=== PATIENT | female | born 1945 | race Caucasian/White ===

== ENCOUNTER 2017-09-05 22:57 | Observation (INO) ==
[2017-09-06] MEDS ORDERED: Naloxone 0.4 MG/ML INJ IVP PRN (04:47)
[2017-09-06] MEDS ORDERED: rOPINIRole 1 MG TABLET PO SCH ×3 (05:00→21:00)
[2017-09-06 06:15] LABS: Hematocrit 38.1 % (35.3-44.9); Hemoglobin 13.1 g/dL (11.5-15.4); Mean Corpuscular HGB Conc 34.4 g/dL (31.6-35.5); Mean Corpuscular Hemoglobin 30.7 pg (28.0-33.3); Mean Corpuscular Volume 89.2 fL (83.0-100.0); Mean Platelet Volume 10.3 fL (9.4-12.4); Platelet Count 244 K/mcL (140-400); Red Blood Count 4.27 M/mcL (3.82-4.97); Red Cell Distribution Width 14.4 % (11.5-14.5)
[2017-09-06 06:37] LABS: BUN/Creatinine Ratio 27 (6-26); Blood Urea Nitrogen 20 mg/dL (8-23); Calcium 8.9 mg/dL (8.6-10.3); Carbon Dioxide 26 mEq/L (23-29); Chloride 108 mEq/L (98-107); Glucose 93 mg/dL (70-105); Osmolality,Calculated 298 (280-300); Potassium 3.8 mEq/L (3.5-5.1); Sodium 143 mEq/L (136-145); eGFR For African Americans > 60 (> 60); eGFR For Non-African Americans > 60 (> 60)
--- NOTE | 2017-09-06 08:33 | Internal Med History&Physical ---
Date of Encounter: 09/06/17 Time of Encounter: 04:00 Internal Medicine - H&P: HPI Chief complaint: Hypokalemia, Seizure like episode. Plans for Post Hospital Care: Home History of present illness: Ms. Garcia is a 72 year old female Transfer from [facility]. She was being worked up for colonoscopy and upper endoscopy. After blood work results showed a low potassium, patient was notified to come to the emergency room for potassium supplementation. She received 2 doses IV potassium upon completion she had a seizure-like episode. Patient's describes that she was unresponsive and was shaking all over. The episode lasted about 15 seconds, then resolved. She has no recollection of the event. ER repeated CT, EKG and other labs, which they reported were all within normal limits because they do not have neurology coverage there she was transferred here for further evaluation. Upon questioning patient noted that these events have happened before in the past but seizing has not been noted with her prior episodes. She usually just gets really tired and then seemingly passes out. Past Med Surg Social Fam HX - Past Medical History Medical history: GERD, hyperlipidemia, hypertension, RA, other Additional medical history: vertigo Psychiatric history: no psych history - Past Surgical History Surgical History: cholecystectomy, orthopedic, other Additional surgical history: Right knee - Social History Smoking Status: Former smoker Alcohol use: occasionally Drug use: none - Family History Mother Living Status: Cause of : Ca Hx Family Cancer: Yes (Lung with mets) Brother Living Status: Cause of : Brain Ca. Hx Family Cancer: Yes (Brain Ca.) Internal Medicine - H&P: Meds Folic Acid 2 mg PO DAILY 09/06/17 [History] Methotrexate [Otrexup] 17.5 mg PO QWEEK 09/06/17 [History] NIFEdipine [Nifedipine ER] 30 mg PO DAILY 09/06/17 [History] Omeprazole [PriLOSEC] 40 mg PO DAILY 09/06/17 [History] Rituxan 09/06/17 [History] Ropinirole HCl [Requip] 4 mg PO HS 09/06/17 [History] hydroCHLOROthiazide [Hydrochlorothiazide] 25 mg PO DAILY 09/06/17 [History] 3 Allergy/AdvReac Type Severity Reaction Status Date / Time acetaminophen [From Percocet] AdvReac Nausea Verified 09/06/17 01:52 codeine AdvReac Nausea Verified 09/06/17 01:52 hydrocodone [From Vicodin] AdvReac Nausea Verified 09/06/17 01:52 Oxycodone [From Percocet] AdvReac Nausea Verified 09/06/17 01:52 All Systems PM: A 10-system review of systems was performed and is negative for pertinent findings except as documented above in the HPI. - Constitutional Vitals: Temp Pulse Resp BP Pulse Ox 97.5 F L 65 14 149/63 99 09/06/17 07:23 09/06/17 07:23 09/06/17 07:23 09/06/17 07:23 09/06/17 07:23 General appearance: Present: A&O X 3, pleasant, no acute distress - Head Head exam: Present: atraumatic, normocephalic - Eye Eye exam: Present: EOMI, PERRL - Respiratory Respiratory exam: Present: CTAB. Absent: rales, rhonchi - Cardiovascular Cardiovascular exam: Present: RRR. Absent: diastolic murmur, systolic murmur - GI/Abdominal GI/Abdominal exam: Present: normal bowel sounds. Absent: firm, tenderness - Extremities Exam Extremities exam: Present: full ROM, warm, radial pulses palpable and symmetrical. Absent: tenderness - Neurological Exam Neurological exam: Present: altered, CN II-XII intact, oriented X3, no focal deficits. Absent: motor sensory deficit - Expanded Neurological Exam Speech: Absent: slurred Cranial Nerves: EOM's intact PM: Normal, nystagmus PM: Normal, tongue deviation PM: Normal Upper motor neuron: pronator drift: Normal - Skin Skin exam: Present: normal color. Absent: rash Internal Med - H&P Results - Labs CBC & Chem 7: 09/06/17 05:39 09/06/17 05:39 Labs: Short CBC 09/06/17 Range/Units 05:39 WBC 6.0 (4.3-11.1) K/mcL Hgb 13.1 (11.5-15.4) g/dL Hct 38.1 (35.3-44.9) % Plt Count 244 (140-400) K/mcL BMP 09/06/17 05:39 Sodium 143 Potassium 3.8 Chloride 108 H Carbon Dioxide 26 BUN 20 Creatinine 0.75 Glucose 93 Calcium 8.9 - Assessment and plan (1) Observed seizure-like activity Current Visit: Yes Status: Acute Assessment and plan: Observed after receiving potassium in the ER. No known history of this in the past, but has had fatigue episodes. Patient was transferred here due to lack of neurology coverage at [facility]. Consult neurology, follow up recommendations. Continue to monitor on fall precautions. (2) Hypokalemia Current Visit: Yes Status: Acute Assessment and plan: Patient had a low potassium on blood testing. She received 2 doses of IV potassium. Potassium has corrected to 3.8 Continue to monitor with routine labs. (3) Restless leg syndrome Current Visit: Yes Status: Acute Assessment and plan: Chronic patient takes ropinirole for this. Continue home medication, but clarify dose. (4) Rheumatoid arthritis Current Visit: Yes Status: Acute Assessment and plan: Patient sees specialists at [facility] and gets heavy transfusions of Rituxan. She also takes methotrexate. No change in management. Qualifiers: Rheumatoid factor presence: unspecified presence Qualified Code(s): M06.9 - Rheumatoid arthritis, unspecified (5) GERD (gastroesophageal reflux disease) Current Visit: Yes Status: Acute Assessment and plan: Patient has history of GERD and takes omeprazole at home. She is going to be scheduled outpatient for upper and lower endoscopy. Continue Prilosec. Qualifiers: Qualified Code(s): K21.9 - Gastro-esophageal reflux disease without esophagitis - Time Spent With Patient Total time spent is greater than 50% in coordination of care (as documented) at patient's floor/unit and/or counseling patient: Greater than 35 minutes
[2017-09-06] MEDS ORDERED: Gadolinium Contrast Agent (WT Based) IV PRN (08:57)
[2017-09-06] MEDS ORDERED: Folic Acid 1 MG TABLET PO SCH (09:00)
--- NOTE | 2017-09-06 09:09 | Neurology - Consult Note ---
<Alberto Alvares - Last Filed: 09/06/17 13:57> Date of Encounter: 09/06/17 Time of Encounter: 10:45 Assessment and Plan (1) Observed seizure-like activity Current Visit: Yes Status: Acute Patient had episode of staring with unresponsiveness and shaking of her torso after K infusion. No seizure history. Has had history of "fainting spells" that sound consistent with vasogal syncope. Recommendations: EEG MRI no need to start AED at this time. Will evaluate further after EEG and MRI read. History of Present Illness HPI: Ms. Garcia is a 72 year old female Past Med Surg Social Fam HX - Past Medical History Medical history: GERD, hyperlipidemia, hypertension, RA, other Additional medical history: vertigo Psychiatric history: no psych history - Past Surgical History Surgical History: cholecystectomy, orthopedic, other Additional surgical history: Right knee - Social History Smoking Status: Former smoker Alcohol use: occasionally Drug use: none - Family History Mother Living Status: Cause of : Ca Hx Family Cancer: Yes (Lung with mets) Brother Living Status: Cause of : Brain Ca. Hx Family Cancer: Yes (Brain Ca.) Medications and Allergies Doxepin [Sinequan] 25 mg PO HS 09/06/17 [History] Duloxetine HCl [Cymbalta] 60 mg PO DAILY 09/06/17 [History] Folic Acid 2 mg PO DAILY 09/06/17 [History] Methotrexate [Otrexup] 17.5 mg PO QWEEK 09/06/17 [History] NIFEdipine [Nifedipine ER] 30 mg PO DAILY 09/06/17 [History] Omeprazole [PriLOSEC] 40 mg PO DAILY 09/06/17 [History] Rituxan 09/06/17 [History] Ropinirole HCl [Requip] 4 mg PO HS 09/06/17 [History] hydroCHLOROthiazide [Hydrochlorothiazide] 25 mg PO DAILY 09/06/17 [History] 3 Allergy/AdvReac Type Severity Reaction Status Date / Time acetaminophen [From Percocet] AdvReac Nausea Verified 09/06/17 01:52 codeine AdvReac Nausea Verified 09/06/17 01:52 hydrocodone [From Vicodin] AdvReac Nausea Verified 09/06/17 01:52 Oxycodone [From Percocet] AdvReac Nausea Verified 09/06/17 01:52 All Systems: The remainder of the systems were reviewed and are negative Physical Examination - Vital Signs Vital Signs: Initial Vital Signs Temp Pulse Resp BP Pulse Ox 98.1 F 66 16 152/75 97 09/06/17 01:26 09/06/17 01:26 09/06/17 01:26 09/06/17 01:26 09/06/17 01:26 Results - Laboratory Findings CBC and BMP: 09/06/17 05:39 09/06/17 05:39 Abnormal lab findings: Abnormal lab results Chloride 108 mEq/L (98-107) H 09/06/17 05:39 BUN/Creatinine Ratio 27 (6-26) H 09/06/17 05:39 Consult Discharge Plan - Plan Instructions: Hypokalemia (DC) Additional Instructions: Please follow up with your PCP in the next 5-7 days for continued follow up. Return to the ED immediately if your symptoms return or worsen. Take your medications as directed Return to your normal activities and diet as tolerated. Do not drive until you have been cleared by your PCP. Referrals: Nathan Ball DO [Primary Care Provider] - <Evelyn Vilchis I - Last Filed: 09/06/17 15:31> Date of Encounter: 09/06/17 Assessment and Plan (1) Observed seizure-like activity Current Visit: Yes Status: Chronic Pt was seen and examined, my medical decision was reviewed with the Resident Physician, I agree with the documented findings, disposition and treatment plas as described except to the extent set forth below Considering this patient's symptoms that she is been experiencing off and on for some time the possibility that it could be a complex partial seizure but the current symptoms would likely exacerbated by of multiple conditions including slight dehydration at the same time hypokalemia , and correction with IV fluids and potassium replacement following the event she had these unusual symptoms which perhaps could be a seizure but the description does not sound like a typical seizure. No focal findings on neurological examination. MRI of the brain is been negative for any acute findings as well as EEG. I would not recommend starting on any anticonvulsive medication at this time we can be of a day patient is an outpatient and perhaps he could do a prolonged EEG if she develop any further symptoms other than that she will follow-up with her primary care and continued to be on current medication Evelyn Vilchis MD History of Present Illness HPI: Ms. Garcia is a 72 year old female was being worked up for colonoscopy and upper endoscopy. After blood work results showed a low potassium, patient was notified to come to the emergency room for potassium supplementation. She received 2 doses IV potassium upon completion she had a seizure-like episode. Patient's describes that she was unresponsive and was shaking all over. The episode lasted about 15 seconds, then resolved. She has no recollection of the event. ER repeated CT, EKG and other labs, which they reported were all within normal limits because they do not have neurology coverage there she was transferred here for further evaluation. Upon questioning patient noted that these events have happened before in the past but seizing has not been noted with her prior episodes. She usually just gets really tired and then seemingly passes out. All Systems: The remainder of the systems were reviewed and are negative Physical Examination - Vital Signs Vital Signs: Initial Vital Signs Temp Pulse Resp BP Pulse Ox 98.1 F 66 16 152/75 97 09/06/17 01:26 09/06/17 01:26 09/06/17 01:26 09/06/17 01:26 09/06/17 01:26 - Exam Exam: GENERAL: Comfortable in no acute distress HEENT: Normal LUNGS: CTA HEART: RRR, S1 S2 Audible, no murmur EXTREMITIES: No Pedal edema. DETAILED NEUROLOGICAL EXAMINATION: MENTAL STATUS: Oriented to person, place, date and situation. Memory: knows the President, Aware of recent events Recent Memory Intact Cranial Nerve Examination: CN - II: Visual Acuity, Field of Vision Normal, Fundus examination: No disk edema, Pupils- size shape reaction to light and accommodation: All normal. CN III, IV, : External ocular movements were intact, Pupils were reactive, Nodrooping of the eyelids CN V: Sensation over the face to light touch and pinprick all normal. Corneal reflexes not tested, jaw jerk normal. CN VII: No facial asymmetry, no flattening of nasolabial folds, no difficulty in closing the eyes, no loss of forehead wrinkles, no difficulty in eye-closure, frowning raising eyebrows. CNVIII: No significant hearing loss CN IX, X: Uvula centralized not deviated, Gag reflex: Not tested CN X1: Sternocleidomastoid, trapezius, normal or evidence of any weakness. CN X11: No Dysarthria, no wasting or fibrilation f tongue muscles, no deviation, tongue muscle strength normal. Motor examination: No hypertrophy, tone was normal, power grade 0-5 Upper limbs Proximal- No difficulty in lifting the arms above the head. Distal- No weakness in distal muscles On formal testing 5/5 all over Lower limbs On formal testing 5/5 all over Coordination: Nnufni-yd-qoca normal. Target pursuit normal finger tapping normal, Rapid alternating moment of wrist normal Sensory system: Superficial sensations- Touch normal. Pain- Pinprick, Temperature all normal, Deep sensation normal, Joint position sense normal. Cortical sensation, Tactile discrimination, localization and extinction all normal. Deep tendon reflexes. Symmetrical bilateral, No evidence of Babinski. No sign of meningeal irritation Gait Examination: Deferred Results - Laboratory Findings CBC and BMP: 09/06/17 05:39 09/06/17 05:39 Abnormal lab findings: Abnormal lab results Chloride 108 mEq/L (98-107) H 09/06/17 05:39 BUN/Creatinine Ratio 27 (6-26) H 09/06/17 05:39
--- NOTE | 2017-09-06 14:34 | Discharge Summary ---
- NOTES TO OUTPATIENT PROVIDER Notes to Outpatient Provider: Patient was admitted for recurrent syncopal episode, this time with diffuse, full body tremors. She reports lengthy history of same without workup. Brain MRI negative for acute process or mass that would account for patient's possible seizure. EEG negative for epileptiform discharges. Patient reports history of same for 2 years, recommend continued workup with primary care after discharge. Date of Encounter: 09/06/17 Time of Encounter: 09:05 - Discharge Diagnosis (1) Observed seizure-like activity Priority: Primary Status: Chronic Assessment and Plan: Patient reports two-year history of recurrent syncopal episodes with no pattern. Patient reports that suddenly she began feeling nauseated, after a brief time she becomes profusely diaphoretic and has loss of consciousness. Length of loss of consciousness is variable. She reports it can happen when she is driving, or rest. She states that prior to the episode she feels fatigued and dizzy like she just needs to lie down. After the episode, she states that she feels very tired. She denies any loss of bowel or bladder. This episode patient had all over jerking and shaking, this was a new symptom. Patient was admitted from outside hospital for hypokalemia, and when she completed her k-rider, she had another syncopal episode, this time with jerking and shaking, which was a new symptom. Brain MRI negative for mass or acute process that would explain her symptoms. EEG negative for paroxysmal activities or epieptiform discharges. Prominent beta activity in the anterior regions could be secondary to anxiety or medication. Neurology evaluated pt, thank you for the consultation and recommendations. Continue to monitor for safety and falls Seizure precautions (2) GERD (gastroesophageal reflux disease) Priority: Secondary Status: Acute Assessment and Plan: Chronic. Continue home medications. Qualifiers: Esophagitis presence: esophagitis presence not specified Qualified Code(s) : K21.9 - Gastro-esophageal reflux disease without esophagitis (3) Hypokalemia Priority: Secondary Status: Resolved Assessment and Plan: Resolved. Continue to monitor with primary care. (4) Restless leg syndrome Priority: Secondary Status: Chronic Assessment and Plan: Chronic. continue home medications. (5) Rheumatoid arthritis Priority: Secondary Status: Chronic Assessment and Plan: Pt follows at [facility] for IV infusions or Rituxan and also takes Methotrexate daily. Continue current treatment now and after discharge. Follow at [facility] Qualifiers: Rheumatoid arthritis location: unspecified site Rheumatoid factor presence : unspecified presence Qualified Code(s): M06.9 - Rheumatoid arthritis, unspecified (6) DVT prophylaxis Priority: Secondary Status: Acute Assessment and Plan: Patient is ambulatory. Hospital course: Ms. Garcia is a 72 year old female with PMH of restless leg syndrome, RA, GERD. Pt has approximately 2 year history of syncopal episodes preceeded by a brief period of nausea, followed by profuse diaphoresis, and then loss of consciousness. Pt is unaware how long the episodes last or how long she is unconscious. Yesterday's episode included a new symptom, jerking and shaking. She had been sent to the ER for hypokalemia and after she received her k rider, she had this episode and was transferred here for evaluation. She has remained stable with stable labs and vitals. Brain MRI was negative and EEG WNL. She has been evaluated by neurololgy who ordered the testing and were suspicious of new onset seizures. Pt is stable and appropriate for discharge with close follow up with PCP for evaluation of medications and possible cardiac/ischemic workup. Discharge discussed with: patient - Time Spent with Patient Total time spent providing and/or coordinating discharge services: Less than 30 minutes - Discharge Medications Home Medications: Doxepin [Sinequan] 25 mg PO HS 09/06/17 [History] Duloxetine HCl [Cymbalta] 60 mg PO DAILY 09/06/17 [History] Folic Acid 2 mg PO DAILY 09/06/17 [History] Methotrexate [Otrexup] 17.5 mg PO QWEEK 09/06/17 [History] NIFEdipine [Nifedipine ER] 30 mg PO DAILY 09/06/17 [History] Omeprazole [PriLOSEC] 40 mg PO DAILY 09/06/17 [History] Rituxan 09/06/17 [History] Ropinirole HCl [Requip] 4 mg PO HS 09/06/17 [History] hydroCHLOROthiazide [Hydrochlorothiazide] 25 mg PO DAILY 09/06/17 [History] Allergies/Adverse Reactions: 3 Allergy/AdvReac Type Severity Reaction Status Date / Time acetaminophen [From Percocet] AdvReac Nausea Verified 09/06/17 01:52 codeine AdvReac Nausea Verified 09/06/17 01:52 hydrocodone [From Vicodin] AdvReac Nausea Verified 09/06/17 01:52 Oxycodone [From Percocet] AdvReac Nausea Verified 09/06/17 01:52 Date of admission: 09/06/17 01:09 Primary care physician: Nathan Ball, Consults: 09/06/17 04:50 Consult to Neurology [CONS] Routine Consulting Provider: [facility] Reason for Consult: Seizure like activity Call Completed: No 09/06/17 11:09 Consult to Interpret Exam [CONS] Routine Consulting Provider: Evelyn Vilchis I Consult to Interpret Exam: Interpret EEG Discharging clinician: Evelin Marte Anticipated date of discharge: 09/06/17 - Constitutional Vitals: Temp Pulse Resp BP Pulse Ox 98.2 F 55 14 143/67 96 09/06/17 12:14 09/06/17 12:14 09/06/17 12:14 09/06/17 12:14 09/06/17 12:14 General appearance: Present: cooperative, A&O X 3, pleasant, no acute distress, answers questions appropriately - Head Head exam: Present: atraumatic, normal inspection, normocephalic - Eye Eye exam: Present: EOMI, normal appearance, conjuntiva pink, sclera anicteric. Absent: nystagmus, periorbital swelling - Neck Neck exam general surgery: Present: normal inspection, supple, trachea midline. Absent: lymphadenopathy, tenderness - Respiratory Respiratory exam: Present: CTAB. Absent: accessory muscle use, chest wall tenderness, rales, respiratory distress, rhonchi, wheezes - Cardiovascular Cardiovascular exam: Present: RRR, +S1, +S2. Absent: diastolic murmur, gallop, rubs, systolic murmur, tachycardia - GI/Abdominal GI/Abdominal exam: Present: normal bowel sounds, soft. Absent: distended, hepatomegaly, tenderness - Extremities Exam Extremities exam: Present: normal capillary refill, normal inspection, warm, radial pulses palpable and symmetrical. Absent: calf tenderness, cyanotic, pedal edema, tenderness - Neurological Exam Neurological exam: Present: alert, oriented X3, no focal deficits. Absent: facial droop, speech deficit - Skin Skin exam: Present: dry, intact, normal color, warm. Absent: rash - Patient Status Disposition: Home, Self-Care Condition: Good Functional capacity at discharge: independent ambulation Overall status at discharge: patient is back to baseline - Discharge Instructions Instructions: Hypokalemia (DC) Follow Up With: [facility] [Provider Group] - 09/20/17 11:15 am Nathan Ball DO [Primary Care Provider] - 09/14/17 12:30 pm Additional Instructions: Please follow up with your PCP in the next 5-7 days for continued follow up. Follow up with Dr. Vilchis on 09/20 as scheduled. Return to the ED immediately if your symptoms return or worsen. Take your medications as directed Return to your normal activities and diet as tolerated. Do not drive until you have been cleared by your PCP. - Diet and Activity Activity: increase activity as tolerated Diet: advance to your usual diet
--- NOTE | 2017-09-06 14:52 | EEG/EMG/Oth Biometrics Report ---
EEG Procedure Report Date of procedure: 09/06/17 EEG Procedure: Routine EEG Procedure Note: Routine 21-channel digital EEG was obtained to rule out any seizure activity or focal abnormalities. FINDINGS: Background rhythm during awake stage shows poorly organized, low voltage fast beta activity in the anterior regions. No [id number] discharges or any lateralizing abnormalities are seen. Almost constant EMG artifacts and tremor artifacts are noted making the study suboptimal. Photic stimulation did not produce any abnormalities. Stage II sleep was not observed. IMPRESSION: NO clear paroxysmal activities or epileptiform discharges were seen. Prominent beta activity in the anterior regions could be secondary to anxiety or medication effect.
[2017-09-06 16:08] VITALS: BP 110/56
== END 2017-09-06 18:00 | disposition home or self-care (01) ==
LOC: 3BNU
PROVIDERS: ADMIT Family Medicine; ATTEND Family Medicine